=== PATIENT | female | born 2000 | race Caucasian/White ===

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

== ENCOUNTER → 2020-10-02 10:19 | Outpatient (CLI) | payer OTHER, BC, SELFPAY ==
[2020-10-04 09:15] LABS: Vitamin B12 425 pg/mL (211-911); Vitamin D,25 Hydroxy 18.5 ng/mL
== END ==
PROVIDERS: PCP Family Medicine; Visit Provider Family Medicine
DX: R53.83 Other fatigue (principal)
CPT/HCPCS: 36415; 82306; 82607

== ENCOUNTER → 2021-06-03 07:45 | Outpatient (CLI) | payer OTHER, BC, SELFPAY ==
--- NOTE | 2021-06-03 08:00 | RAD_ITS ---
STUDY: AIR CONTRAST UPPER GI SERIES and esophagram. REASON FOR EXAM: Female, 21 years old. VOMITING DAILY FLUOROSCOPY TIME (if supplied): (47 seconds) minutes/seconds. 9 images were obtained. TECHNIQUE: SINGLE CONTRAST AND AIR CONTRAST FLUOROSCOPIC IMAGES. COMPARISON: None. FINDINGS: The cervical esophagus demonstrates normal motility without aspiration. There is no stricture or extrinsic mass effect. No intraluminal polypoid mass is identified. The thoracic esophagus distends well without stricture or mucosal fold thickening. No mucosal ulcerations are identified. There is no extrinsic mass effect. There are no diverticula. No hiatal hernia or gastroesophageal reflux was identified. The stomach distends well without mucosal fold thickening or mucosal ulceration. There is no intraluminal mass. The duodenal bulb is freely distensible without deformity or ulceration. The duodenal sweep is normal in position and caliber. RAD/Upper GI w/BA Swallow IMPRESSION: Normal air-contrast upper GI series. Electronically Signed: Mohit Alston MD at 8:33 EDT , Service support ,
== END ==
PROVIDERS: PCP Family Medicine; Referring Provider Family Medicine; Visit Provider Family Medicine
DX: R11.10 Vomiting, unspecified (principal)
CPT/HCPCS: 74246

== ENCOUNTER → 2021-07-29 12:18 | Outpatient (CLI) | payer BC, SELFPAY | PROVIDERS: PCP Family Medicine; Referring Provider Internal Medicine Gastroenterology; Visit Provider Internal Medicine Gastroenterology | DX: Z11.59 Encounter for screening for other viral diseases (principal) | CPT/HCPCS: 87635; C9803; U0005; U0003 ==

== ENCOUNTER → 2021-08-01 15:43 | Outpatient (CLI) | payer BC, SELFPAY ==
--- NOTE | 2021-08-01 | IMM_PTH ---
PATIENT: HENRIETTA SOLORZANO LOC: [facility] U#:[id number] AGE/SX: 25/F ROOM: RE08/01/[address]: Dr. Chau Rea MD : 2000 BED: DIS: SPEC #: [id number] RECD: 08/02/21 13:24 STATUS: GHISLAINE RESharonda #: [id number] DOROTHY: 08/01/21 00:[address]: Chau Rea DEPT: IMMUNOHISTOCHEMISTRY RECD BY: Patricia Ansari ENTERED: 08/02/21 13:25 SP TYPE: IMMUNO OTHR DR: Dr. Alisha Boo MD Tissues: Abdomen, NOS Procedures: H Pylori (initial) PHYSICIAN & INSTITUTION [facility] [id number] SPECIMEN INFORMATION: Tissue Source: Gastric antrum Clinical Info: Abdomen pain, nausea, GERD-like symptoms, rule out gastritis Specimen Number: [id number] CPT code: 64916 METHODOLOGY: Deparaffinized sections of prefer/formalin-fixed tissue or PAP/DQ stained slides are incubated with monoclonal/polyclonal antibodies/oligonucleotide probes. Localization is made via biotin free immunoperoxidase method. Appropriate controls are performed and reacted as expected. Results on target cell population are indicated in the following table: RESULTS: ANTIBODY / CLONE RESULT H Pylori (polyclonal) negative These tests were developed and their performance characteristics determined by [facility]. They may not have been cleared or approved by the [place]. Food and Drug Administration. The FDA has determined that such clearance or approval is not necessary. INTERPRETATION: Gastric antrum, biopsy: Negative for Helicobacter pylori organisms. DIANDRA:ashlie 08/03/2021
--- NOTE | 2021-08-01 | EGD_PTH ---
PATIENT: HENRIETTA SOLORZANO LOC: [facility] U#:[id number] AGE/SX: 25/F ROOM: RE08/01/[address]: Dr. Chau Rea MD : 2000 BED: DIS: SPEC #: [id number] RECD: 08/01/21 15:13 STATUS: GHISLAINE QURESHI #: [id number] DOROTHY: 08/01/21 00:[address]: Chau Rea DEPT: SURGICAL PATHOLOGY RECD BY: Mauricio Chau ENTERED: 08/02/21 12:06 SP TYPE: EGD BIOPSY OT DR: Dr. Alisha Boo MD [facility] Tissues: Gastric mucous membrane Procedures: Surgery Specimen Level IV HEADER OPERATION: EGD with biopsies PRE-OP DIAGNOSIS: Abdomen pain, nausea, GERD-like symptoms TISSUE SUBMITTED: Gastric antrum biopsies, rule out gastritis/H. pylori MICROSCOPIC DIAGNOSIS Gastric antrum, biopsy: Mild gastritis. See microscopic description and comment. SJ:ashlie 08/03/2021 COMMENT The results of immunohistochemistry for Helicobacter pylori will be reported separately ([id number]). MICROSCOPIC DESCRIPTION Slides are reviewed. The specimen shows fragments of gastric mucosa with chronic inflammatory cell infiltrates in the lamina propria consisting of lymphocytes and plasma cells, consistent with mild chronic gastritis. GROSS DESCRIPTION Received in fixative is one container labeled with the patient's name and designated gastric antrum biopsy. The specimen consists of three irregular fragments of light bernstein soft tissue that in aggregate measure 0.7 x 0.5 x 0.1 cm. The specimen is totally submitted in one cassette. / AM:ashlie 08/02/2021 TC:3 CPT: 99885
== END ==
PROVIDERS: PCP Family Medicine; Referring Provider Internal Medicine Gastroenterology; Visit Provider Internal Medicine Gastroenterology
DX: R10.9 Unspecified abdominal pain (principal); K21.9 Gastro-esophageal reflux disease without esophagitis; R11.0 Nausea
CPT/HCPCS: 88305; 88342

== ENCOUNTER 2022-02-15 14:41 | Outpatient (CLI) | payer BC, SELFPAY ==
[2022-02-15 15:43] LABS: Absolute Lymphocyte Count 1.58 X10^3/uL (0.83-4.51); Absolute Neutrophil Count 3.2 X10^3/uL (2.0-7.7); Basophil# 0.04 X10^3/uL; Basophil% 0.7 % (0-1); Eosinophil# 0.23 X10^3/uL; Eosinophils% 4.2 % (0-5); Hemoglobin 13.6 g/dL (12.0-15.0); Lymphocyte # 1.58 X10^3/ul (0.83-4.51); Lymphocyte % 28.8 % (19-41); Mean Corpuscular Hgb 33.3 pg (27.0-32.0); Mean Corpuscular Volume 97.8 fL (81-99); Mean Platelet Vol. 10.5 fl (6.2-12.0); Monocyte# 0.48 X10^3/uL; Monocyte% 8.7 % (0-10); NRBC Flagged by Analyzer 0 % (0-5); Neutrophil # 3.15 X10^3/uL (2.7-7.7); Neutrophil % 57.4 % (47-70); Platelet Count 258 K/mm3 (150-450); Red Blood Count 4.09 M/mm3 (4.2-5.4); White Blood Count 5.5 K/mm3 (4.4-11.0)
[2022-02-15 16:18] LABS: Erythrocyte Sedimentation Rate 5 mm/hr (0-30)
[2022-02-15 16:32] LABS: ALB/GLOB Ratio 1.3 RATIO (0.9-2.4); AST(SGOT) 20 U/L (15-37); Alanine Aminotransfer ALT/SGPT 26 U/L (13-56); Albumin, Serum 4.2 g/dL (3.2-5.0); Alkaline Phosphatase 38 U/L (45-117); Anion Gap 2 (5-15); BUN 12 mg/dL (7-18); BUN/Creat Ratio 17.3 RATIO (10-20); CRP < 2.90 mg/L (0.0-3.0); Calcium,Total 8.7 mg/dL (8.5-10.1); Chloride 108 mmol/L (98-107); Creatinine, Serum 0.69 mg/dL (0.55-1.02); EST Glomerular Filtration Rate 113 mL/min (>60); Est Glom Filt Rate - Afr Amer 137 mL/min (>60); Globulin 3.2 g/dL (2.2-4.2); Glucose 91 mg/dL (74-106); Potassium 3.8 mmol/L (3.5-5.1); Protein, Total 7.4 g/dL (6.4-8.2); Sodium Level 139 mmol/L (136-145)
[2022-02-17 15:08] LABS: Endomysial Antibody IgA Negative (Negative)
[2022-02-17 16:50] LABS: Immunoglobulin A 223 mg/dL (87-352); t-Transglutaminase IgA <2 U/mL (0-3)
== END 2022-02-15 23:59 | disposition home or self-care (01) ==
PROVIDERS: PCP Family Medicine; Visit Provider Nurse Practitioner Adult Health
DX: R19.7 Diarrhea, unspecified (principal); R10.9 Unspecified abdominal pain; R11.0 Nausea; R63.4 Abnormal weight loss
CPT/HCPCS: 36415; 80053; 82784; 83516; 85025; 85652; 86140; 86255